=== PATIENT | male | born 1980 | race Caucasian/White ===

== ENCOUNTER 2017-06-03 19:41 | Emergency (ER) | payer OTHER, MEDICAID ==
[~2017-06-03] VITALS: Ht 170.2 cm; Wt 59.5 kg
[2017-06-03] MEDS ORDERED: SULF1TAB49 PO (21:42)
[2017-06-03] MEDS ORDERED: CEPH-572 PO (21:42)
[2017-06-03] MEDS ORDERED: HYDR-569 PO (21:42)
[2017-06-03] MEDS ORDERED: HYDROcodone/acetaminophen 5mg/325mg tablet PO ONE (22:00)
[2017-06-03 22:25] VITALS: BP 114/75
== END 2017-06-03 22:26 | disposition home or self-care (01) ==
LOC: ER 19:43
DX: L03.116 Cellulitis of left lower limb (principal); Z88.0 Allergy status to penicillin; Z79.899 Other long term (current) drug therapy
CPT/HCPCS: 99284; A6222; A6223; A6446; A6449

== ENCOUNTER 2018-02-17 10:27 | Emergency (ER) | payer MEDICAID ==
[~2018-02-17] VITALS: Ht 170.2 cm; Wt 47.0 kg
[~2018-02-17 10:27] MED LIST: HYDR-4383 PO
[2018-02-17 11:03] VITALS: BP 94/45
[2018-02-17] MEDS ORDERED: TRIA15CR61 TP (12:14)
== END 2018-02-17 12:22 | disposition home or self-care (01) ==
LOC: ER 10:27
DX: L23.9 Allergic contact dermatitis, unspecified cause (principal); L98.9 Disorder of the skin and subcutaneous tissue, unspecified; Z88.0 Allergy status to penicillin; Z79.899 Other long term (current) drug therapy
CPT/HCPCS: 99283